=== PATIENT | female | born 2000 | race Caucasian/White ===

== ENCOUNTER 2025-02-15 13:58 | Emergency (ER) | payer MEDICAID ==
[~2025-02-15] VITALS: Ht 154.9 cm; Wt 70.0 kg
[2025-02-15 14:00] VITALS: O2SAT 99
[2025-02-15] MEDS: ACETAMINOPHEN 325MG TABLET PO STA (14:46)
[2025-02-15 14:58] VITALS: BP 117/72; PULSE 85; RESP 17; TEMP 36.7; O2SAT 99
[2025-02-15 15:00] LABS: BASOPHILS % 0.2 % (0.0-2.0); EOSINOPHILS % 0.4 % (0.0-5.0); HEMATOCRIT. 35.4 % (36.0-48.0); HEMOGLOBIN. 11.9 g/dL (12.0-16.0); LYMPHOCYTES % 18.2 % (20.0-50.0); MEAN CORPUSCULAR HEMOGLOBIN 29.9 pg (28.0-32.0); MEAN CORPUSCULAR HGB CONC 33.7 g/dL (31.0-37.0); MEAN CORPUSCULAR VOLUME 88.6 fL (81.0-99.0); MEAN PLATELET VOLUME 7.4 fl (7.4-10.4); MONOCYTES % 5.6 % (2.0-8.0); NEUTROPHILS % 75.6 % (40.0-76.0); PLATELET 262 x1000/uL (130-400); RED BLOOD CELL COUNT 3.99 mill/uL (4.2-5.4); RED CELL DISTRIBUTION WIDTH 13.9 % (11.6-14.6)
[2025-02-15 15:08] LABS: CHLORIDE 105 mEq/L (98-107); POTASSIUM 4.2 mEq/L (3.5-5.1); SODIUM 137 mEq/L (136-145)
[2025-02-15 15:10] LABS: CARBON DIOXIDE 23 mEq/L (21-32)
[2025-02-15 15:11] LABS: CALCIUM 9.8 mg/dL (8.7-10.4)
[2025-02-15 15:15] LABS: CREATININE 0.4 mg/dL (0.6-1.0)
[2025-02-15 15:16] LABS: GLUCOSE 91 mg/dL (70-105); UREA NITROGEN BLOOD 6 mg/dL (9-23)
[2025-02-15 15:17] LABS: ALBUMIN 3.6 g/dL (3.2-4.8)
[2025-02-15 15:18] LABS: ALANINE AMINOTRANSFERASE 10 IU/L (10-49); ASPARTATE AMINOTRANSFERASE 29 IU/L (<34); BILIRUBIN DIRECT < 0.1 mg/dL (<=3.0); BILIRUBIN TOTAL 0.5 mg/dL (0.1-1.0); PROTEIN TOTAL 6.9 g/dL (6.0-8.3)
[2025-02-15 15:31] LABS: INR 0.9; PROTHROMBIN TIME 9.8 sec (9.6-11.0)
== END 2025-02-15 15:04 | disposition home or self-care (01) ==
LOC: ER 14:30
DX: O26.893 Other specified pregnancy related conditions, third trimester (principal); R10.30 Lower abdominal pain, unspecified; Z79.899 Other long term (current) drug therapy; Z3A.38 38 weeks gestation of pregnancy; V89.2XXA Person injured in unspecified motor-vehicle accident, traffic, initial encounter; Y93.89 Activity, other specified; Y92.89 Other specified places as the place of occurrence of the external cause; Y99.8 Other external cause status
CPT/HCPCS: 36415; 76815; 80048; 80076; 85025; 99284